=== PATIENT | male | born 1995 | race Caucasian/White ===

== ENCOUNTER 2017-11-08 02:45 | Emergency (ER) | payer OTHER ==
[~2017-11-08] VITALS: Ht 172.7 cm; Wt 72.6 kg
[2017-11-08 02:47] VITALS: BP_SYST 127
[2017-11-08 03:00] VITALS: BP_SYST 125
== END 2017-11-08 03:00 ==
LOC: SED 02:45
DX: Z02.89 Encounter for other administrative examinations (principal)